=== PATIENT | male | born 1975 | race Asian ===

== ENCOUNTER 2024-02-09 04:09 | Day surgery (SDC) | payer BC ==
[2024-02-07 10:22] VITALS: BMI 26.6
[2024-02-09 08:28] VITALS: TEMP 98.1
[2024-02-09 08:50] VITALS: RESP 16
[2024-02-09 09:09] VITALS: BP 113/74; PULSE 68
== END 2024-02-09 09:10 | disposition home or self-care (01) ==
LOC: JASU-ENDO 04:09
PROVIDERS: ATTEND Internal Medicine Gastroenterology
PROC: 0DJD8ZZ Inspection of Lower Intestinal Tract, Via Natural or Artificial Opening Endoscopic (ICD-10-PCS; principal; 2024-02-09 08:00)
DX: Z12.11 Encounter for screening for malignant neoplasm of colon (principal)